=== PATIENT | female | born 1965 | race Two or more races ===

== ENCOUNTER → 2024-01-05 | Outpatient (CLI) | payer OTHER ==
[2024-01-05 08:57] LABS: Urine Bacteria None Seen /hpf (None Seen)
[2024-01-05 09:11] LABS: Basophils # (auto) 0 10 ^3/uL (0-0.2); Basophils % (auto) 0.6 % (0.0-2.0); Eosinophils # (auto) 0.2 10 ^3/uL (0-0.8); Eosinophils % (auto) 2.9 % (0.0-7.0); Hemoglobin 14.3 g/dL (12.2-16.2); Lymphocytes # (auto) 2.3 10 ^3/uL (0.4-5.4); Lymphocytes % (auto) 34.9 % (10.0-50.0); Mean Corpuscular Hemoglobin 30.3 pg (28.0-32.0); Monocytes # (auto) 0.6 10 ^3/uL (0-1.3); Monocytes % (auto) 9.5 % (0.0-12.0); Neutrophils # (auto) 3.4 10 ^3/uL (1.6-8.6); Neutrophils % (auto) 52.1 % (37.0-80.0); Platelet Count (auto) 199 10^3/uL (140-450); Red Blood Cells 4.72 10^6/uL (4.0-5.20); Red Cell Distribution Width 14.5 % (11.8-14.3); White Blood Cell 6.6 10^3/uL (4.4-10.8)
[2024-01-05 09:37] LABS: Urine Blood Negative /uL (Negative); Urine Clarity Clear (Clear); Urine Color Colorless (Yellow); Urine Protein, UAD Negative (Negative); Urine Specific Gravity 1.005 (1.001-1.035); Urine Urobilinogen Normal (Negative); Urine WBC <1 /hpf (0 - 5); Urine pH 6.5 (5.0-9.0)
[2024-01-05 09:59] LABS: Alanine Aminotransferase 26 U/L (7-40); Albumin 4.9 g/dL (3.2-4.8); Alkaline Phosphatase 64 U/L (46-116); Anion Gap 7 (5-15); Aspartate Aminotransferase 15 U/L (13-40); BUN/Creatinine Ratio 17.6 (10.0-20.0); Blood Urea Nitrogen 13 mg/dL (9-23); Calcium 10.2 mg/dL (8.7-10.4); Carbon Dioxide 26 mmol/L (20-30); Chloride 106 mmol/L (98-107); GFR African American 104 mL/min; GFR Non-African American 86 mL/min; Glucose 96 mg/dL (74-106); LDL Cholesterol 96 mg/dL (< 100); Potassium 3.9 mmol/L (3.5-5.1); Sodium 139 mmol/L (136-145); Triglycerides 169 mg/dL (< 150)
[2024-01-05 10:00] LABS: Bilirubin, Total 0.7 mg/dL (0.2-1.0); Cholesterol 164 mg/dL (< 200); HDL Cholesterol 45 mg/dL (40-59); Phosphorus 3.5 mg/dL (2.4-5.1); Total Protein 7.7 g/dL (5.7-8.2)
[2024-01-05 10:15] LABS: T3 Total 1.12 ng/mL (0.60-1.81)
[2024-01-05 10:19] LABS: Free T4 (Free Thyroxine) 1.49 ng/dL (0.89-1.76)
[2024-01-05 10:32] LABS: Prolactin 390.41 ng/mL (2.8-29.2)
== END | disposition home or self-care (01) ==
LOC: LAB 08:43
PROVIDERS: ATTEND Family Medicine
DX: Z76.89 Persons encountering health services in other specified circumstances (principal)
CPT/HCPCS: 36415; 80053; 80061; 80069; 81001; 82306; 82607; 83036; 84146; 84439; 84443; 84480; 85025; 86304